=== PATIENT | female | born 1960 | race Hispanic/Latino ===

== ENCOUNTER 2022-01-10 10:51 | Emergency (ER) | payer OTHER ==
[~2022-01-10] VITALS: Ht 154.9 cm; Wt 95.3 kg
[2022-01-10] MEDS ORDERED: IBUPROFEN 600 MG TAB PO STA (11:30)
[2022-01-10] MEDS ORDERED: IBUPROFEN 600 MG TAB ONE (12:25)
[2022-01-10] MEDS ORDERED: NAPROSYN500 MG PO (12:27)
[2022-01-10 12:41] VITALS: BP 132/74
== END 2022-01-10 12:42 | disposition home or self-care (01) ==
LOC: FSED 10:57
DX: M25.571 Pain in right ankle and joints of right foot (principal); E78.5 Hyperlipidemia, unspecified; E03.9 Hypothyroidism, unspecified
CPT/HCPCS: 99283